=== PATIENT | male | born 1940 | race Caucasian/White ===

== ENCOUNTER 2023-06-10 17:01 | Outpatient (CLI) | payer OTHER ==
[2023-06-10 18:42] LABS: SYNOVIAL FLUID COLOR YELLOW
[2023-06-10 18:43] LABS: MONONUCLEAR 7 %; POLYMORPHONUCLEAR 93 %; SYNOVIAL FLUID APPEARANCE TURBID
== END 2023-06-10 17:10 | disposition home or self-care (01) ==
LOC: LAB 17:01
PROVIDERS: ATTEND Orthopaedic Surgery
DX: M25.462 Effusion, left knee (principal)